=== PATIENT | female | born 1995 | race Caucasian/White ===

== ENCOUNTER 2019-03-13 00:36 | Emergency (ER) | payer SELFPAY ==
[~2019-03-13] VITALS: Ht 162.6 cm; Wt 72.6 kg
[2019-03-13] MEDS ORDERED: LEXAPRO10 MG ORAL (00:44)
--- NOTE | 2019-03-13 00:50 | NUR ---
ED Nurse Note: Patient walked in from home c/o animal bites. Per patient she was plaing with her friend's dog and next thing she realised that she was bitten by that dog. Patient has 3 wounds: Left lower extremiti, right flank area, right wrist. AAO x4, VSS at this time.
[2019-03-13 00:55] VITALS: BP 118/77
[2019-03-13] MEDS ORDERED: Hydrogen Peroxide 473ml Bottle TOPIC ONE (01:00)
[2019-03-13] MEDS ORDERED: Bacitracin Oint UD TOPIC ONE (01:00)
[2019-03-13] MEDS ORDERED: Augmentin 875mg Tab ORAL ONE (01:00)
--- NOTE | 2019-03-13 01:16 | Emergency Room Report ---
History of Present Illness General Chief Complaint: Animal Bite Source: Patient Present Illness HPI Patient presents with complaints of multiple dog scratches and a puncture wound Patient reports that it was a friend's dog She was teaching him how to sit and she can There was an episode with the patient essentially was bit on the right leg several abrasions and scratches involving the right upper flank region Left breast And the palmar aspect of the right hand Patient reports that last immunization with tetanus was less than 5 years ago Denies any other trauma or lapse of consciousness denies any abdominal pain Allergies: Coded Allergies: CIPROFLOXACIN (Verified Allergy, Unknown, 03/13/19) Patient History Past Medical History: see triage record Pertinent Family History: none Last Menstrual Period: 03/06/19 Now: No : 0 Para: 0 Reviewed Nursing Documentation: PMH: Agreed; PSxH: Agreed Nursing Documentation-PMH Past Medical History: No Stated History Review of Systems All Other Systems: negative except mentioned in HPI Physical Exam Vital Signs Date Time Temp Pulse Resp B/P (MAP) Pulse Ox O2 Delivery O2 Flow Rate FiO2 03/13/19 00:41 98.1 75 18 118/77 97 Room Air Sp02 EP Interpretation: reviewed, normal General Appearance: well appearing, no apparent distress Head: normocephalic, atraumatic Eyes: bilateral eye PERRL, bilateral eye EOMI ENT: normal pharynx Neck: supple Respiratory: lungs clear, no retraction, no accessory muscle use Cardiovascular #1: regular rate, rhythm Gastrointestinal: non tender, soft Genitourinary: no CVA tenderness Musculoskeletal: normal inspection Neurologic: alert, oriented x3, responsive Skin: other - Multiple areas of abrasions and what appears to be scratch petros involving the right upper flank area, left breast, patient has puncture wound to the right lower mid tibial region, also the right hand abrasion patient has several superficial abrasions on the right lower leg is general as well Lymphatic: no adenopathy Medical Decision Making Diagnostic Impression: Primary Impression: Dog bite Additional Impression: Puncture wound ER Course Given the patient's history and presentation irrigation with high-pressure saline and peroxide is initiated specifically on the puncture wound on the right lower leg as well Patient initiated on oral antibiotic The puncture wound is not appropriate for suture closure at this time Steri-Strip was applied over the top with some appropriate approximation Patient requires wound care management continued antibiotics and further outpatient care Last Vital Signs Date Time Temp Pulse Resp B/P (MAP) Pulse Ox O2 Delivery O2 Flow Rate FiO2 03/13/19 00:41 98.1 75 18 118/77 97 Room Air Status: improved Disposition: HOME, SELF-CARE Condition: Improved Scripts Bacitracin (BACITRACIN*) 1 Each Packet 1 PACKET TOPIC DAILY for 10 Days, #30 PACKET 0 Refills Prov: Parker Vizcarra DO 03/13/19 Ibuprofen* (MOTRIN*) 600 Mg Tablet 600 MG ORAL Q8H PRN for For Pain, #20 TAB 0 Refills Prov: Parker Vizcarra DO 03/13/19 Amoxicillin/Potassium Clav 875-125* (AUGMENTIN 875-125 TABLET*) 1 Each Tablet 1 TAB ORAL TWICE A DAY, #14 TAB Prov: Parker Vizcarra DO 03/13/19 Additional Instructions: Patient is provided with the discharge instructions notified to follow up with primary doctor in the next 2-3 days otherwise return to the er with any worsening symptoms. Please note that this report is being documented using Chef technology. This can lead to erroneous entry secondary to incorrect interpretation by the dictating instrument. Parker Vizcarra DO Mar 13, 2019 01:16
--- NOTE | 2019-03-13 01:20 | NUR ---
ED Nurse Note: Per patient she took 600mg of Ibuprofen at home, and she refused to take it at ER.
[2019-03-13] MEDS ORDERED: BACITRACIN1 EACH TOPIC (01:33)
[2019-03-13] MEDS ORDERED: AUGMENTIN 875-1 EAC1 ORAL (01:33)
[2019-03-13] MEDS ORDERED: IBUPROFEN600 MG ORAL (01:33)
[2019-03-13 01:36] VITALS: BP 118/77
--- NOTE | 2019-03-13 01:37 | NUR ---
ED Nurse Note: Pt cleared by health care Provider for discharge. DC instructions/prescription was given and explained to pt and verbalized understanding of teachings. All medical deviecs such as ID band removed. Pt is AAO x4, ambulatory and left with all personal belongings.
== END 2019-03-13 01:31 | disposition home or self-care (01) ==
LOC: EMR 00:54
DX: S30.811A Abrasion of abdominal wall, initial encounter (principal); S81.831A Puncture wound without foreign body, right lower leg, initial encounter; S20.112A Abrasion of breast, left breast, initial encounter; S60.511A Abrasion of right hand, initial encounter; S80.811A Abrasion, right lower leg, initial encounter; W54.0XXA Bitten by dog, initial encounter; Y92.89 Other specified places as the place of occurrence of the external cause; Z88.1 Allergy status to other antibiotic agents
CPT/HCPCS: 99283